=== PATIENT | female | born 1965 | race Caucasian/White ===

== ENCOUNTER → 2018-05-31 | Outpatient (CLI) | payer OTHER | LOC: MC.RAD 07:07 | DX: Z12.31 Encounter for screening mammogram for malignant neoplasm of breast (principal) ==

== ENCOUNTER 2018-11-25 08:02 | Day surgery (SDC) | payer OTHER ==
[~2018-11-25] VITALS: Ht 162.6 cm; Wt 111.4 kg
[2018-11-25] VITALS (8 sets, daily range): BP systolic 131–169; BP diastolic 67–93; PULSE 76–91; TEMP 97.8–98.4
[2018-11-25] MEDS ORDERED: SINGULAIR 110 MG/TAB PO (08:28)
[2018-11-25] MEDS ORDERED: PROZAC 20MG20 MG PO (08:28)
[2018-11-25] MEDS ORDERED: PRINIVIL20 MG PO (08:28)
--- NOTE | 2018-11-25 10:40 | NUR ---
Pt to GI bay 7 via cart from ENDO. Pt diaphoretic and nauseated. Pt ambulates to recliner with stand by assitance. Pt made comfortable in recliner. IV Fluids open wide. Mother in room. Will let pt rest. Lights dimmed. Pt denies needs at this time. Call light within reach.
--- NOTE | 2018-11-25 10:55 | NUR ---
Pt continues to rest. Denies needs at this time. Call light within reach.
--- NOTE | 2018-11-25 11:10 | NUR ---
Pt continues to have vomiting and nausea. Dr. Guerrero notified and orders given.
--- NOTE | 2018-11-25 11:25 | NUR ---
Pt has small amount of emisis. Dark brown in color.
--- NOTE | 2018-11-25 11:30 | NUR ---
Ativan 1mg IVSP and Scopolamine patch placed behind right ear per orders. Will continue to monitor. Call light within reach.
--- NOTE | 2018-11-25 11:55 | NUR ---
Pt continues to have nausea. Small amount of emisis (brown in color). Will continue to monitor.
--- NOTE | 2018-11-25 12:18 | NUR ---
Pt still having nausea. Pt sleeps, then when waking up she vomits. Will continue to monitor. Call light within reach.
--- NOTE | 2018-11-25 12:59 | NUR ---
Pt awake, taking ice chips. Light turned on. More color to pt's cheeks. Mother in room. Will continue to monitor.
--- NOTE | 2018-11-25 13:20 | NUR ---
Pt up to restroom with stand by assistance. Gait steady. No vomiting. Pt states "I am a little dizzy, but not bad. " Pt back to room and dressing. Call light within reach.
--- NOTE | 2018-11-25 13:35 | NUR ---
IV site discontinued with all parts intact. Discharge instructions given. Pt voices understanding.
--- NOTE | 2018-11-25 13:47 | NUR ---
Pt escorted to private car via wheel chair. Pt accompanied home by her mother.
== END 2018-11-25 13:49 | disposition home or self-care (01) ==
LOC: SDCO 08:02
DX: Z12.11 Encounter for screening for malignant neoplasm of colon (principal); Z86.010 Personal history of colon polyps; Z80.0 Family history of malignant neoplasm of digestive organs; D12.2 Benign neoplasm of ascending colon; K57.30 Diverticulosis of large intestine without perforation or abscess without bleeding; I10 Essential (primary) hypertension; Z79.899 Other long term (current) drug therapy
CPT/HCPCS: J2060; J7030

== ENCOUNTER → 2020-06-10 | Outpatient (CLI) | payer OTHER ==
[~2020-06-10] MED LIST: PRINIVIL20 MG PO; PROZAC 20MG20 MG PO; SINGULAIR 110 MG/TAB PO
== END ==
LOC: MC.RAD 07:18
DX: N63.10 Unspecified lump in the right breast, unspecified quadrant (principal); R59.0 Localized enlarged lymph nodes; L53.8 Other specified erythematous conditions

== ENCOUNTER → 2020-07-10 | Outpatient (CLI) | payer OTHER | LOC: MC.RAD 14:15 | DX: R92.2 Inconclusive mammogram (principal) ==

== ENCOUNTER → 2020-07-22 | Outpatient (CLI) | payer OTHER | LOC: MC.RAD 07:26 | DX: C50.911 Malignant neoplasm of unspecified site of right female breast (principal); N63.21 Unspecified lump in the left breast, upper outer quadrant ==

== ENCOUNTER → 2020-07-23 | Outpatient (CLI) | payer OTHER | LOC: MC.RAD 11:21 | DX: N63.21 Unspecified lump in the left breast, upper outer quadrant (principal); Z98.82 Breast implant status ==

== ENCOUNTER 2020-09-12 09:36 | Day surgery (SDC) | payer OTHER ==
[~2020-09-12] VITALS: Ht 162.6 cm; Wt 93.5 kg
[2020-09-12] MEDS ORDERED: ZOFRAN ODT4 MG PO (10:46)
[2020-09-12] MEDS ORDERED: LORAINT PO (10:46)
[2020-09-12] MEDS ORDERED: CLARITIN REDIT PO (10:47)
[2020-09-12 10:57] VITALS: BP 118/78; PULSE 93; TEMP 97.8
[2020-09-12 12:25] VITALS: BP 119/73; PULSE 81
[2020-09-12 12:40] VITALS: BP 112/70; PULSE 73
[2020-09-12 12:55] VITALS: BP 115/70; PULSE 71
[2020-09-12 13:10] VITALS: BP 116/66; PULSE 72
--- NOTE | 2020-09-12 13:56 | NUR ---
Pt is ready to go home. IV was dc'd, cath intact, dressing applied. Port dc'd, flushed with 20 cc ns and heparin flush before pulling port. bandaid to site. Pt has had a small amt water, has voided with bedpan. Pt has been able to sit at edge of bed and has been ambulatory in room with a steady gait. I have reviewed dc instructions with pt who did not have any questions at time of departure. pt is escorted to exit via wheelchair with her mom.
== END 2020-09-12 11:40 | disposition home or self-care (01) ==
LOC: COL.CAR 09:36
DX: T82.898A Other specified complication of vascular prosthetic devices, implants and grafts, initial encounter (principal); I10 Essential (primary) hypertension; F41.9 Anxiety disorder, unspecified; F32.9 Major depressive disorder, single episode, unspecified; K76.0 Fatty (change of) liver, not elsewhere classified; Z85.3 Personal history of malignant neoplasm of breast; Z92.21 Personal history of antineoplastic chemotherapy
CPT/HCPCS: J0690; J1644; J2250; J2704; J3010; J7030

== ENCOUNTER 2021-04-22 08:26 | Inpatient (IN) | payer OTHER ==
[~2021-04-22] VITALS: Ht 162.6 cm; Wt 68.1 kg
[~2021-04-22 08:26] MED LIST changes: +CLARITIN REDIT PO; +LORAINT PO; +ZOFRAN ODT4 MG PO
[2021-05-20] VITALS (11 sets, daily range): BP systolic 114–153; BP diastolic 62–72; PULSE 59–99; TEMP 97.4–98.4
[2021-05-20 10:17] LABS: BASO % 0.6 % (0.0-2.0); EOS % 0.8 % (0-4.0); GRAN # 2.6 (1.4-6.5); GRAN % 72.8 % (42.2-75.2); HEMATOCRIT 41.7 % (37.0-47.0); HEMOGLOBIN 13.9 g/dl (12.5-16.0); LYMPH # 0.6 (1.2-3.4); LYMPH % 16.1 % (20.0-51.0); MEAN CELL VOLUME 97 fl (80.0-100.0); MEAN CORPUSCULAR HEMOGLOBIN 32 pg (27.0-31.0); MEAN CORPUSCULAR HGB CONC 33 g/dl (33.0-37.0); MEAN PLATELET VOLUME 9.7 fl (7.4-10.4); MONO # 0.3 (0.1-0.6); MONO % 9.4 % (1.7-9.3); PLATELET COUNT 157 K/mm3 (130-400); RED BLOOD COUNT 4.31 M/mm3 (4.10-5.30)
[2021-05-20 10:29] LABS: ALBUMIN 3.8 gm/dL (3.5-5.0); BILIRUBIN,TOTAL 0.9 mg/dL (0.0-1.0); CALCIUM 9.8 mg/dL (8.4-10.2); CREATININE, serum 0.58 (0.52-1.25); POTASSIUM 3.9 mmol/L (3.4-5.0); TOTAL PROTEIN 6.9 gm/dL (6.4-8.2)
--- NOTE | 2021-05-20 11:15 | NUR ---
Patient taken to radiology per wheelchair.
--- NOTE | 2021-05-20 11:46 | NUR ---
IV started in the left hand per order of Dr. Farrar.
[2021-05-20] MEDS ORDERED: LORAINT PO (11:53)
[2021-05-20] MEDS ORDERED: NEURONTIN250 MG/5 M PO ×2 (11:55→22:47)
[2021-05-20] MEDS ORDERED: PROZAC 20MG4 MG/1 ML PO (12:04)
--- NOTE | 2021-05-20 12:17 | NUR ---
Patient returns to room 6 per wheelchair from radiology. Assisted to the restroom with use of wheeled walker. Voids and returns to room. Siderails up x2 and call light in reach. IV fluids infusing at TKO left wrist area.
--- NOTE | 2021-05-20 18:55 | NUR ---
Patient alert and oriented, tearful. See assessment. HAY wrap in place around bilateral breast CDI. Bilateral breast LANCE drains to bulb compression, scant amount serosanguinous drainage noted. Patient tearful and doses off frequently with conversation, will reviewed drains and post op exercises when more awake and accepting of education.
--- NOTE | 2021-05-20 19:45 | NUR ---
PT IN BED, EATING CRACKERS AND DRINKING WATER. DENIES NAUSEA. HAS DRSG TO CHEST WITH HAY BANDAGE D/I. LANCE'S X2 WITH BLOODY DRAINAGE. IS ALERT AND ORIENTED X4.
--- NOTE | 2021-05-20 20:35 | NUR ---
PT IN BED, IS ALERT AND ORIENTED X4. HAS IVF TO LEFT HAND, EATING CRACKERS.
--- NOTE | 2021-05-20 23:28 | NUR ---
PT TAKES NORCO FOR MILD DISCOMFORT TO INCISIONAL AREAS. PT AWAKE, DENIES NAUSEA. HAS VOIDED X1 GREEN DISCOLORED URINE.
--- NOTE | 2021-05-21 02:00 | NUR ---
PT DENIES NEEDS. RESTING IN BED, SCDS ON, DRSG D/I, LANCE'S TO BULB SX.
[2021-05-21 03:25] VITALS: BP 128/61; PULSE 58; TEMP 98.5
--- NOTE | 2021-05-21 06:00 | NUR ---
PT DENIES NEEDS AT THIS TIME. RESTING IN BED. LANCE DRAINS EMPTIED PREVIOUSLY FOR 10CC EACH OF SANGUINOUS DRAINAGE.
[2021-05-21 07:58] VITALS: BP 135/55; PULSE 68; TEMP 97.7
--- NOTE | 2021-05-21 10:07 | NUR ---
Initial visit; Patient thanked [facility] for looking in on her, offering God's blessings and keeping her in [facility]'s prayers.
--- NOTE | 2021-05-21 10:30 | NUR ---
Patient alert and oriented, answers questions appropriately. See assessment. Bilateral breast incisions with edges well approximated, no redness or drainage noted. Bilateral breast LANCE drains compressed, small amount of serosanguinous drainage noted in bulbs. HAY wrap applied around breast. Post op exercises reviewed with patient. No c/o at this time.
--- NOTE | 2021-05-21 11:29 | NUR ---
SW met with the patient to discuss discharge plan. The patient lives in [place] with her mother, Trini (c.[phone]). She reports needing some assistance with ADLs and has a cane and walker. She states that her mother helps her with her ADLs. The patient's PCP is Dr. Dilan Raphael and she receives her medications from [facility] [place]. She reports no difficulties obtaining her meds. The patient's DPOA-HC is in EMR and it designates her mother and sister, Paradise Bl[place] (ph#[phone]). The patient plans to return home with family assistance upon discharge. She states that a friend is also going to be helping her out when she returns home. No additional needs at this time. *Discharge plan: home with family/friend assistance*
[2021-05-21 12:00] VITALS: BP 115/51; PULSE 71; TEMP 97.7
[2021-05-21 16:00] VITALS: BP 131/61; PULSE 68; TEMP 98
--- NOTE | 2021-05-21 16:05 | NUR ---
LANCE drain care reviewed with patient, return demonstration per patient.
[2021-05-21 19:27] VITALS: BP 137/63; PULSE 65; TEMP 98.1
--- NOTE | 2021-05-21 21:00 | NUR ---
Pt. sitting up in bed at this time. Pt. is A&OX3, assessment complete. INT tl lt hand patent. Dressing to bilateral breasts CDI. LANCE x2 with bloody drainage noted. Pt. reports pain at a 5 on pain scale, giving pain meds per orders. Pt. denies further needs, call light within reach.
[2021-05-22 00:22] VITALS: BP 158/54; PULSE 73; TEMP 98.1
[2021-05-22 03:52] VITALS: BP 138/61; PULSE 69; TEMP 97.9
[2021-05-22 08:29] VITALS: BP 131/60; PULSE 63; TEMP 97.9
--- NOTE | 2021-05-22 11:10 | NUR ---
Patient alert and oriented, answers questions appropriately. See assessment. Bilateral breast incisions with edges well approximated, no redness or drainage noted. Gauze and HAY placed on breast incisions. Bilateral breast LANCE drains compressed, small amount of serosanguinous drainage noted. Post op exercises reviewed with patient. No c/o at this time.
[2021-05-22 12:00] VITALS: BP 128/67; PULSE 76; TEMP 98
[2021-05-22] MEDS ORDERED: NORCOELIX PO (12:19)
--- NOTE | 2021-05-22 16:20 | NUR ---
Discharge instructions reviewed with patient and family. LANCE drain care and incision care reviewed and return demonstration. Discharged via wheelchair to auto/home with family at 1450.
== END 2021-05-22 14:50 | disposition home or self-care (01) | DRG 580 ==
LOC: SURG 05-20 07:00 → INPTSU 05-20 08:35 → SURG 05-20 09:00
PROVIDERS: ADMIT Surgery
PROC: 07B50ZZ Excision of Right Axillary Lymphatic, Open Approach (ICD-10-PCS; 2021-05-20)
PROC: 0HBT0ZZ Excision of Right Breast, Open Approach (ICD-10-PCS; principal; 2021-05-20 14:00)
PROC: 07B60ZZ Excision of Left Axillary Lymphatic, Open Approach (ICD-10-PCS; 2021-05-20 14:00)
DX: C50.111 Malignant neoplasm of central portion of right female breast (principal); E44.0 Moderate protein-calorie malnutrition; C50.412 Malignant neoplasm of upper-outer quadrant of left female breast; Z68.25 Body mass index [BMI] 25.0-25.9, adult
CPT/HCPCS: A9284; A9541; J1100; J1885; J2250; J2405; J2550; J2704; J2795; J3010; J7120